=== PATIENT | female | born 1935 | race Caucasian/White ===

== ENCOUNTER 2017-03-14 21:51 | Emergency (ER) | payer MEDICARE, BC ==
[2017-03-15] MEDS ORDERED: Heparin Sodium/D5W 25,000 UNITS/500 ML BAG IV SCH (00:45)
[2017-03-15] MEDS ORDERED: Heparin Sodium 5,000 Units/ML Vial IVPUSH ONE (00:50)
[2017-03-15] MEDS: Aspirin 325 MG Tab.EC PO ONE ×2 (00:54→01:16)
[2017-03-15 01:29] VITALS: BP 156/64
--- NOTE | 2017-03-17 12:02 | ER ---
DATE SEEN: 03/14/2017 The patient was seen at 2300 hours. HISTORY: This 81-year-old woman comes in because she had sudden onset of peripheral vision "seeing squares and colored dots in the center of triangles." She had right-sided peripheral vision changes. She got up to make supper for her daughter and was moving about when she experienced these symptoms. She went up the stairs and then came down and experienced further lightheadedness. PAST MEDICAL HISTORY: This patient is diabetic. She has dry eyes, mild retention, glaucoma, dyslipidemia, and GERD. ALLERGIES: None. MEDICATIONS: 1. Omeprazole. 2. Insulin. 3. Tylenol. 4. Dry eye drops. 5. Calcium carbonate with vitamin D. 6. Aspirin. 7. Lasix. 8. Kathryn-3 fatty acids. 9. Metoprolol. 10.Lisinopril. 11.Latanoprost. 12.Simvastatin. REVIEW OF SYSTEMS: CONSTITUTIONAL: The patient denies headache, neck stiffness, or compromise in her vision right now. She denies diplopia or blurred vision presently. Denies neck ache. She notes that she has compromised circulation in her carotids. She denies chest pain, shortness of breath, cough, irregular heartbeat, lightheadedness, dizziness, near syncope, syncope, or dyspnea on exertion. GI: She is overweight. She weighs 230 pounds with a BMI of 44.2. No blood in the stool or black tarry stool. : Notes occasional incontinence. MUSCULOSKELETAL: Has problems with her right hip. She walks with a slight limp. This is not new for her. She plans on seeing Dr. Salcido next week. Two years ago, she had right hip pain, was treated with meloxicam. She was started on glaucoma medicine a year ago. She just saw a doctor four days ago. Has a past medical history of previous CVA, which has resolved. PHYSICAL EXAMINATION: VITAL SIGNS: Blood pressure 163/69. Heart rate 68 and regular. Respiratory rate 18, oxygen saturation 97%, temperature 36.7 degrees centigrade. Weight 106.14 kg with a BMI of 44 kg/m2. CONSTITUTIONAL: Alert woman, overweight who has marked fullness of face and abdomen with her overweight features. She is attended by her two daughters, who insisted that she come into the hospital. HEENT: PERRLA intact. Eyegrounds normal. Retina: No abnormality except for mild drusen and arterial changes, but no retinal detachment. Lenses, previous surgery noted for glaucoma. There is a question for cataracts. EOMs normal. Pharynx without abnormality. Gag in place. Uvula midline. NECK: No thyromegaly or masses in the neck. No cervical adenopathy. Slight bruit in the right side of her neck, less than the left. HEART: S1, S2. There is a soft systolic murmur. S2 slightly greater than S1. LUNGS: Clear to auscultation without rales, rhonchi, or wheezes. ABDOMEN: Soft. No guarding or abdominal discomfort. Increased abdominal girth. LOWER EXTREMITIES: Without pedal edema. Deep tendon reflexes, absent in the lower extremities but 1+ in upper extremities, brachioradialis (C5) and biceps (C6). DIAGNOSTIC DATA: EKG: Sinus rhythm. There is a T-wave inversion in lead III and V1. No ST elevation. Right bundle-branch block, left anterior hemiblock, sinus rhythm. LABORATORY DATA: She had a troponin, which is elevated at 0.33. Otherwise, metabolic panel: Chloride low at 98, CO2 elevated at 30, BUN 25, and creatinine 1.2. BUN and creatinine ratio 20.8, slight dehydration, and GFR estimated 43 - stage 3 chronic kidney disease. Trace elevation in the alkaline phosphatase, and total protein slightly elevated at 8.2. Hemoglobin normal at 13.1, white count 10,800, PMNs 60, lymphs 29, monos 9, eosinophils 4. DIAGNOSES: 1. Non-ST elevation myocardial infarction. The patient's status discussed with Dr. Arreola, hospitalist, [facility]. 2. Marked obesity. 3. Peripheral vision abnormality, possibly secondary to carotid circulation abnormality. No clear evidence for amaurosis fugax. 4. Glaucoma. 5. Hypertension. 6. Diabetes. 7. Dry eyes. /[id number] JAZMINE/SHIRLEYL
== END 2017-03-15 01:48 ==
LOC: FB.ED 21:51
DX: I21.4 Non-ST elevation (NSTEMI) myocardial infarction (principal); H40.9 Unspecified glaucoma; H04.129 Dry eye syndrome of unspecified lacrimal gland; E11.9 Type 2 diabetes mellitus without complications; I10 Essential (primary) hypertension; E78.5 Hyperlipidemia, unspecified; K21.9 Gastro-esophageal reflux disease without esophagitis; Z79.4 Long term (current) use of insulin; Z79.82 Long term (current) use of aspirin
CPT/HCPCS: 36415; 80053; 84484; 85025; 85610; 85730; 93005; 96365; 96376; 99285; J1644; 99284; A9270-GY

== ENCOUNTER 2019-01-26 16:01 | Emergency (ER) | payer MEDICARE, BC ==
[2019-01-26] MEDS ORDERED: Codeine/guaiFENesin 100mg-10 MG/5 ML Soln 118 ML Bottle PO ONE (16:02)
--- NOTE | 2019-01-26 16:37 | EDM.PDOC ---
ED HPI GENERAL MEDICAL PROBLEM - General Chief Complaint: Respiratory Problem Stated Complaint: COUGH CONGESTED Time Seen by Provider: 01/26/19 16:10 Source of Information: Reports: Patient, Family History Limitations: Reports: No Limitations - History of Present Illness INITIAL COMMENTS - FREE TEXT/NARRATIVE: 83 y.o.w.f with multiple med issues, came to the ED due to a cough at night in supine position and occ a running nose. One of the Pt's relative is "sick" Pt describes the cough as dry. Pt is using a walker, can walk 1/2 a block, is tired and has to sit down, which is her baseline. Pt is on prednisone, which was decreased in dosage for 4 to 3 mg daily. No F/C, no N/V/D no other acute med issues. BP 101/57 RR 20 Pulse ox 94% on RA Temp 36.8 Pulse 59 Onset Date: 01/24/19 Onset Time: 09:00 Duration: Day(s):, Intermittent Location: Reports: Face, Chest Quality: Reports: Dull Improves with: Reports: Rest Worsens with: Reports: Movement Context: Reports: Sick Contact Associated Symptoms: Reports: No Other Symptoms - Related Data Allergies Allergy/AdvReac Type Severity Reaction Status Date / Time No Known Allergies Allergy Verified 01/26/19 16:10 Home Meds: Home Meds Acetaminophen [Mapap] 500 mg PO DAILY PRN 12/12/13 [History] Aspirin 325 mg PO DAILY 12/12/13 [History] Calcium Carbonate/Vitamin D3 [Calcium 600 + Vit D Tablet] 1 each PO DAILY [History] Carboxymethylcellulos/Glycerin [Refresh Optive Eye Drops] 15 ml OP DAILY PRN 03/19 [History] Furosemide 20 mg PO DAILY 12/12/13 [History] Latanoprost 1 drop EYEBOTH DAILY 12/12/13 [History] Lisinopril 40 mg PO DAILY 12/12/13 [History] Metoprolol Tartrate [Lopressor] 50 mg PO DAILY 12/12/13 [History] [place]-3 Fatty Acids [[place]-3] 600 mg PO DAILY 12/12/13 [History] Omeprazole 20 mg PO DAILY PRN 12/12/13 [History] Simvastatin 40 mg PO DAILY 12/12/13 [History] Insulin Aspart [NovoLOG] 14 unit SQ WITHMEALSANDBED 03/14/17 [History] Insulin Glarg,Human.Rec.Analog [LantUS Solostar] 46 unit SUBCUT WITHBREAKFAST [History] Past Medical History HEENT History: Reports: Cataract, Impaired Vision Cardiovascular History: Reports: Heart Murmur, High Cholesterol, Hypertension Gastrointestinal History: Reports: GERD [employer] History: Reports: Musculoskeletal History: Reports: Arthritis, Back Pain, Chronic Endocrine/Metabolic History: Reports: Diabetes, Type II, Obesity/BMI 30+ - Past Surgical History HEENT Surgical History: Reports: Cataract Surgery, Tonsillectomy GI Surgical History: Reports: Cholecystectomy, Colonoscopy Musculoskeletal Surgical History: Reports: Knee Replacement Social & Family History - Family History Family Medical History: Noncontributory - Tobacco Use Smoking Status *Q: Never Smoker Second Hand Smoke Exposure: No - Caffeine Use Caffeine Use: Reports: Soda - Recreational Drug Use Recreational Drug Use: No ED ROS GENERAL - Review of Systems Review Of Systems: See Below Constitutional: Reports: No Symptoms HEENT: Reports: Rhinitis Respiratory: Reports: Cough (occ, dry) Cardiovascular: Reports: No Symptoms Endocrine: Reports: No Symptoms GI/Abdominal: Reports: No Symptoms : Reports: No Symptoms Musculoskeletal: Reports: No Symptoms Skin: Reports: No Symptoms Neurological: Reports: No Symptoms Psychiatric: Reports: No Symptoms Hematologic/Lymphatic: Reports: No Symptoms Immunologic: Reports: No Symptoms ED EXAM, GENERAL - Physical Exam Exam: See Below Exam Limited By: No Limitations General Appearance: Alert, WD/WN, Mild Distress Eye Exam: Bilateral Eye: Normal Inspection Ears: Normal External Exam Ear Exam: Bilateral Ear: Auricle Normal Nose: Normal Inspection, Normal Mucosa Throat/Mouth: Normal Inspection, Normal Lips, Normal Voice, No Airway Compromise Head: Atraumatic, Normocephalic Neck: Normal Inspection, Supple, Non-Tender, Full Range of Motion Respiratory/Chest: No Respiratory Distress, Lungs Clear, Normal Breath Sounds, No Accessory Muscle Use, Chest Non-Tender Cardiovascular: Normal Peripheral Pulses, Regular Rate, Rhythm, No Edema, No Gallop, No Rub Peripheral Pulses: 1+: Radial (L) GI/Abdominal: Normal Bowel Sounds, Soft, Non-Tender, No Organomegaly, No Mass, Pelvis Stable (Female) Exam: Deferred Rectal (Female) Exam: Deferred Back Exam: Normal Inspection Extremities: Normal Inspection, Normal Range of Motion, Non-Tender, Normal Capillary Refill Neurological: Alert, Oriented, CN II-XII Intact, Normal Cognition Psychiatric: Normal Affect, Normal Mood Skin Exam: Warm, Dry, Normal Color, No Rash Lymphatic: No Adenopathy Course - Vital Signs Text/Narrative:: 83 y.o.w.f with multiple med issues, came to the ED due to a cough at night in supine position and occ a running nose. One of the Pt's relative is "sick" Pt describes the cough as dry. Pt is using a walker, can walk 1/2 a block, is tired and has to sit down, which is her baseline. Pt is on prednisone, which was decreased in dosage for 4 to 3 mg daily. No F/C, no N/V/D no other acute med issues. BP 101/57 RR 20 Pulse ox 94% on RA Temp 36.8 Pulse 59 PE: WNWD W F with dry cough and sinus tenderness Imaging: Max sinuses: NAD, CXR 2 views: Fibrosis: As per NAD Impression: Rhinitis. Dry cough, cause not determined Tx: None in the ED Reexam: Pt was doing fine in the ED Plan: D/C with instructions Last Recorded V/S: Last Vital Signs Temp 36.9 C 01/26/19 17:50 Pulse 65 01/26/19 17:50 Resp 18 01/26/19 17:50 BP 120/52 L 01/26/19 17:50 Pulse Ox 94 L 01/26/19 17:50 - Orders/Labs/Meds Orders: Active Orders 24 hr Category Date Time Status Chest 2V [CR] Stat Exams 01/26/19 16:34 Taken Sinus Comp Min 3V [CR] Stat Exams 01/26/19 16:34 Taken Departure - Departure Time of Disposition: 17:46 Disposition: Home, Self-Care 01 Condition: Good Clinical Impression: Cough in adult patient, Cough Rhinitis Qualifiers: Allergic rhinitis trigger: other - Discharge Information Instructions: Nonallergic Rhinitis Referrals: Isrrael Salcido MD [Primary Care Provider] - Forms: ED Department Discharge Additional Instructions: Please cont your meds, please take Robitussin as recommended, please F/U, come back if your symptoms get worse acutely - My Orders Last 24 Hours: My Active Orders 01/26/19 16:34 Chest 2V [CR] Stat Sinus Comp Min 3V [CR] Stat - Assessment/Plan Last 24 Hours: My Active Orders 01/26/19 16:34 Chest 2V [CR] Stat Sinus Comp Min 3V [CR] Stat
[2019-01-26 18:01] VITALS: BP 120/52; PULSE 65
--- NOTE | 2019-01-27 08:02 | CR ---
INDICATION: Cough. CHEST TWO VIEWS: PA and lateral views of the chest 01/26/19 was compared with PA view of 02/14/10. The heart is enlarged with left ventricular prominence. The aorta is tortuous to a mild degree and calcified in the arch area. Diminished bone density suggests osteoporosis. Bridging hyperostotic changes are noted in the mid to lower thoracic spine. Evidence of exogenous obesity is noted. Pulmonary markings appear similar to the previous study overall and are slightly heavy at the left lung base raising question of either fibrosis or minimal patchy bronchopneumonia. Similar appearance at the right lung base also likely fibrotic. No gross consolidating pneumonia or effusion was seen, however. IMPRESSION: 1. No definite acute process but cannot exclude minimal patchy bronchopneumonia at the lung bases. 2. Progressive ASHD with LVE. 3. Mild dextroconvex scoliosis lower middle thoracic spine with DJD in the lower thoracic spine and mid thoracic spine. MTDD
--- NOTE | 2019-01-27 08:06 | CR ---
INDICATION: Runny nose and sinus pain. PARANASAL SINUSES: Three views of the paranasal sinuses revealed the paranasal sinuses to appear atretic in the area of the frontal sinuses. The ethmoidal and maxillary as well as sphenoidal air cells appear to be well aerated with no air fluid levels or opacification. No definite bony erosions. IMPRESSION: Normal paranasal sinuses. Reports were called to Reina at 1738 hours. [facility]
== END 2019-01-26 17:58 | disposition home or self-care (01) ==
LOC: FB.ED 16:01
DX: J30.9 Allergic rhinitis, unspecified (principal); R05 Cough; E78.00 Pure hypercholesterolemia, unspecified; I10 Essential (primary) hypertension; K21.9 Gastro-esophageal reflux disease without esophagitis; E11.9 Type 2 diabetes mellitus without complications; Z79.82 Long term (current) use of aspirin; Z79.899 Other long term (current) drug therapy; Z79.4 Long term (current) use of insulin
CPT/HCPCS: 71046; 99283; 99283-25; A9270-GY

== ENCOUNTER 2020-07-27 19:05 | Emergency (ER) | payer MEDICARE, BC ==
[2020-07-27 19:30] VITALS: PULSE 70
--- NOTE | 2020-07-27 19:55 | EDM.PDOC ---
ED HPI GENERAL MEDICAL PROBLEM - General Chief Complaint: Genitourinary Problem Stated Complaint: BLOOD IN URINE Time Seen by Provider: 07/27/20 19:35 Source of Information: Reports: Patient History Limitations: Reports: No Limitations - History of Present Illness INITIAL COMMENTS - FREE TEXT/NARRATIVE: 85-year-old female who reports last night had pain with urination and frequency. It seemed to improve by the time she went to bed and she states that she slept all through the night without any problems and no more symptoms in the morning when she awoke. She states that she went to [place] today and had numerous doctor appointments related to her previous pacemaker and TAVR and her other medical problems and when she was coming home she went to the restroom and urinated and noted blood in her urine she also had redeveloped the pain with urination to some extent and she also noted mid back pain. She has had no fevers or chills. No nausea or vomiting. No abdominal pain. No weakness or dizziness. She reports that her pain is a 3/10 in her mid back and also when she urinates. The pain in her back is somewhat worse with movement and with palpation. She states that she does have some chronic back pain and she is unsure if this pain is new from that chronic back pain. She reports that she has been eating and drinking normally. She has no chest pain or shortness of breath. She is currently on no chronic anticoagulation. She presents to the emergency department via private vehicle by her granddaughter. There are no other associated signs or symptoms. There are no other modifying factors. Onset: Other (Yesterday evening) Duration: Waxing/Waning (Initially seemed to get better but has come back and seems worse today.) Location: Reports: Back, Other (Genitourinary area with urination) Quality: Reports: Burning, Other ("Discomfort") Severity: Mild Improves with: Reports: None Worsens with: Reports: Other (Palpation. The genitourinary pain is with urination.), Movement Context: Reports: Other Associated Symptoms: Reports: No Other Symptoms Treatments DIN[employer]PER[employer] SLATE: Reports: Other (see below) (Nothing.) - Related Data Allergies Allergy/AdvReac Type Severity Reaction Status Date / Time morphine Allergy Hallucinati Verified 07/27/20 19:29 ons oxycodone Allergy Hallucinati Verified 07/27/20 19:29 ons Home Meds: Home Meds Acetaminophen [Mapap] 500 mg PO DAILY PRN 12/12/13 [History] Aspirin 325 mg PO DAILY 12/12/13 [History] Calcium Carbonate/Vitamin D3 [Calcium 600 + Vit D Tablet] 1 each PO DAILY 12/12/13 [History] Carboxymethylcellulos/Glycerin [Refresh Optive Eye Drops] 15 ml OP DAILY PRN 12/12/13 [History] Furosemide 20 mg PO DAILY 12/12/13 [History] Latanoprost 1 drop EYEBOTH DAILY 12/12/13 [History] Lisinopril 40 mg PO DAILY 12/12/13 [History] Metoprolol Tartrate [Lopressor] 50 mg PO DAILY 12/12/13 [History] [place]-3 Fatty Acids [[place]-3] 600 mg PO DAILY 12/12/13 [History] Omeprazole 20 mg PO DAILY PRN 12/12/13 [History] Simvastatin 40 mg PO DAILY 12/12/13 [History] Insulin Aspart [NovoLOG] 14 unit SQ WITHMEALSANDBED 03/14/17 [History] Insulin Glarg,Human.Rec.Analog [LantUS Solostar] 46 unit SUBCUT WITHBREAKFAST 03/14/17 [History] Past Medical History HEENT History: Reports: Cataract, Impaired Vision Cardiovascular History: Reports: Heart Murmur, Heart Valve Replacement, High Cholesterol, Hypertension, Pacemaker, Other (See Below) Other Cardiovascular History: recent blood clot in her arm that was removed. Respiratory History: Reports: Other (See Below) Other Respiratory History: pneumonia after her valve replacement. Gastrointestinal History: Reports: GERD Genitourinary History: Reports: Other (See Below) Other Genitourinary History: states that she had kidney problems. Musculoskeletal History: Reports: Arthritis, Back Pain, Chronic Endocrine/Metabolic History: Reports: Diabetes, Type II, Obesity/BMI 30+ Hematologic History: Reports: Anemia, Other (See Below) Other Hematologic History: hx of blood transfusion. - Past Surgical History HEENT Surgical History: Reports: Cataract Surgery, Tonsillectomy Cardiovascular Surgical History: Reports: Pacer, Other (See Below) (TAVR) GI Surgical History: Reports: Cholecystectomy, Colonoscopy Musculoskeletal Surgical History: Reports: Knee Replacement Social & Family History - Tobacco Use Tobacco Use Status *Q: Never Tobacco User Second Hand Smoke Exposure: No - Caffeine Use Caffeine Use: Reports: Soda Other Caffeine Use: once in a while - Alcohol Use Alcohol Use History: No - Recreational Drug Use Recreational Drug Use: No - Living Situation & Occupation Occupation: Retired Social History Comment: Lives in her own home and her granddaughter lives with her. ED ROS GENERAL - Review of Systems Review Of Systems: See Below Constitutional: Reports: No Symptoms HEENT: Reports: No Symptoms Respiratory: Reports: No Symptoms Cardiovascular: Reports: No Symptoms GI/Abdominal: Reports: No Symptoms : Reports: Dysuria, Hematuria Musculoskeletal: Reports: Back Pain Skin: Reports: No Symptoms Neurological: Reports: No Symptoms Hematologic/Lymphatic: Reports: No Symptoms (No chronic anticoagulation.) Immunologic: Reports: No Symptoms ED EXAM, RENAL/ - Physical Exam Exam: See Below Exam Limited By: No Limitations General Appearance: Alert, No Apparent Distress, Obese, Other (Nontoxic appearing) Eye Exam: Bilateral Eye: EOMI, Normal Inspection, PERRL Ears: Normal External Exam, Hearing Grossly Normal Nose: Normal Inspection, Normal Mucosa, No Blood Throat/Mouth: Normal Inspection, Normal Lips, Normal Oropharynx, Normal Voice, No Airway Compromise Head: Atraumatic, Normocephalic Neck: Normal Inspection, Supple, Non-Tender, Full Range of Motion Respiratory/Chest: No Respiratory Distress, Lungs Clear, Normal Breath Sounds, No Accessory Muscle Use, Chest Non-Tender Cardiovascular: Normal Peripheral Pulses, Regular Rate, Rhythm, No Murmur GI/Abdominal: Normal Bowel Sounds, Soft, Non-Tender, No Mass Back Exam: Normal Inspection, Full Range of Motion, CVA Tenderness (R) (Mild.) Extremities: Non-Tender, Normal Capillary Refill, Pedal Edema (Trace) Neurological: Alert, Oriented, CN II-XII Intact, Normal Cognition, No Motor/Sensory Deficits Psychiatric: Normal Affect Skin Exam: Warm, Dry, Intact, Normal Color, No Rash Course - Vital Signs Last Recorded V/S: Last Vital Signs Temp 36.0 C L 07/27/20 22:00 Pulse 70 07/27/20 22:00 Resp 19 07/27/20 22:00 BP 169/60 H 07/27/20 22:00 Pulse Ox 97 07/27/20 22:00 - Orders/Labs/Meds Orders: Active Orders 24 hr Category Date Time Status Abdomen Pelvis wo Cont [CT] Stat Exams 01/22/21 20:01 Taken CULTURE URINE [RM] Stat Lab 07/27/20 19:25 Received Peripheral IV Insertion Adult [OM.PC] Routine Oth 07/27/20 21:03 Ordered Labs: Laboratory Tests 07/27/20 07/27/20 07/27/20 Range/Units 19:31 19:44 19:44 WBC 7.1 (3.0-10.3) x10-3/uL RBC 4.02 (3.60-5.20) x10(6)uL Hgb 12.1 (11.4-15.5) g/dL Hct 38.1 (34.2-48.2) % MCV 94.8 (76.7-100.5) fL MCH 30.1 (23.9-33.9) pg MCHC 31.8 L (31.9-34.8) g/dL RDW 16.2 (12.3-16.5) % Plt Count 197 (151-488) x10(3)uL MPV 9.3 (7.1-12.4) fL Neut % (Auto) 64.2 (30.8-76.2) % Lymph % (Auto) 22.4 (18.4-52.1) % [place] % (Auto) 8.5 (4.4-15.7) % Eos % (Auto) 3.5 (0.6-8.1) % Baso % (Auto) 1.4 (0.2-1.5) % Neut # (Auto) 4.6 (1.5-6.3) x10-3/uL Lymph # (Auto) 1.6 (1.0-4.4) x10-3/uL [place] # (Auto) 0.6 (0.3-1.0) x10-3/uL Eos # (Auto) 0.2 (0.0-0.8) x10-3/uL Baso # (Auto) 0.1 (0.0-0.1) x10-3/uL PT 10.2 (9.0-11.1) sec INR 0.94 L (1.00-1.24) Sodium (135-145) mmol/L Potassium (3.5-5.3) mmol/L Chloride (100-110) mmol/L Carbon Dioxide (21-32) mmol/L BUN (7-18) mg/dL Creatinine (0.55-1.02) mg/dL Est Cr Clr Drug Dosing mL/min Estimated GFR (MDRD) (>60) BUN/Creatinine Ratio (9-20) Glucose (80-116) mg/dL Calcium (8.6-10.2) mg/dL Total Bilirubin (0.1-1.3) mg/dL AST (5-25) IU/L ALT (12-36) U/L Alkaline Phosphatase (56-112) IU/L Total Protein (6.0-8.0) g/dL Albumin (3.2-4.6) g/dL Globulin g/dL Albumin/Globulin Ratio Urine Color Red (YELLOW) Urine Appearance Cloudy (CLEAR) Urine pH 7.0 H (5.0-6.5) Ur Specific [place] 1.015 (1.010-1.025) Urine Protein 100 H (NEGATIVE) mg/dL Urine Glucose (UA) 100 H (NORMAL) mg/dL Urine Ketones 15 H (NEGATIVE) mg/dL Urine Occult Blood Moderate H (NEGATIVE) Urine Nitrite Positive H (NEGATIVE) Urine Bilirubin Negative (NEGATIVE) Urine Urobilinogen 1 H (NEGATIVE) mg/dL Ur Leukocyte Esterase Moderate H (NEGATIVE) Urine RBC Packed H (0-5) 07/27/20 Range/Units 19:44 WBC (3.0-10.3) x10-3/uL RBC (3.60-5.20) x10(6)uL Hgb (11.4-15.5) g/dL Hct (34.2-48.2) % MCV (76.7-100.5) fL MCH (23.9-33.9) pg MCHC (31.9-34.8) g/dL RDW (12.3-16.5) % Plt Count (151-488) x10(3)uL MPV (7.1-12.4) fL Neut % (Auto) (30.8-76.2) % Lymph % (Auto) (18.4-52.1) % [place] % (Auto) (4.4-15.7) % Eos % (Auto) (0.6-8.1) % Baso % (Auto) (0.2-1.5) % Neut # (Auto) (1.5-6.3) x10-3/uL Lymph # (Auto) (1.0-4.4) x10-3/uL [place] # (Auto) (0.3-1.0) x10-3/uL Eos # (Auto) (0.0-0.8) x10-3/uL Baso # (Auto) (0.0-0.1) x10-3/uL PT (9.0-11.1) sec INR (1.00-1.24) Sodium 144 (135-145) mmol/L Potassium 4.7 (3.5-5.3) mmol/L Chloride 103 (100-110) mmol/L Carbon Dioxide 33 H (21-32) mmol/L BUN 17 (7-18) mg/dL Creatinine 1.4 H (0.55-1.02) mg/dL Est Cr Clr Drug Dosing 20.72 mL/min Estimated GFR (MDRD) 36 L (>60) BUN/Creatinine Ratio 12.1 (9-20) Glucose 200 H (80-116) mg/dL Calcium 8.8 (8.6-10.2) mg/dL Total Bilirubin 0.5 (0.1-1.3) mg/dL AST 29 H D (5-25) IU/L ALT 14 D (12-36) U/L Alkaline Phosphatase 104 (56-112) IU/L Total Protein 6.6 (6.0-8.0) g/dL Albumin 2.9 L (3.2-4.6) g/dL Globulin 3.7 g/dL Albumin/Globulin Ratio 0.8 Urine Color (YELLOW) Urine Appearance (CLEAR) Urine pH (5.0-6.5) Ur Specific [place] (1.010-1.025) Urine Protein (NEGATIVE) mg/dL Urine Glucose (UA) (NORMAL) mg/dL Urine Ketones (NEGATIVE) mg/dL Urine Occult Blood (NEGATIVE) Urine Nitrite (NEGATIVE) Urine Bilirubin (NEGATIVE) Urine Urobilinogen (NEGATIVE) mg/dL Ur Leukocyte Esterase (NEGATIVE) Urine RBC (0-5) Meds: Medications Discontinued Medications Generic Name Dose Route Start Last Admin Trade Name Freq PRN Reason Stop Dose Admin Ceftriaxone Sodium 1 gm 07/27/20 21:03 07/27/20 21:07 Rocephin IVPUSH 07/27/20 21:04 1 gm ONETIME ONE Administration Sodium Chloride 1,000 mls @ 125 mls/hr 07/27/20 21:15 07/27/20 21:08 Normal Saline IV 125 mls/hr ASDIRECTED DEANNA Administration Sodium Chloride 10 ml 07/27/20 21:03 07/27/20 20:07 Saline Flush FLUSH 10 ml ASDIRECTED PRN Administration Keep Vein Open - Radiology Interpretation Free Text/Narrative:: CT scan of abdomen and pelvis showed no evidence of ureterolithiasis or hydronephrosis. She did have a right nephrolithiasis. There was evidence of colonic diverticulosis but no evidence of diverticulitis area she did have a moderate size left retroperitoneal hematoma extending from the superior pole of the left kidney down to the level of the sacroiliac joint on the left side. This was per the [facility] radiologist. - Re-Assessments/Exams Free Text/Narrative Re-Assessment/Exam: 07/27/20 20:50: I discussed the patient's case with Dr. Berry, [facility] radiologist, and he conveyed the information about the left-sided retroperitoneal hematoma. There was no evidence of intraperitoneal hemorrhage. At this point, the patient was reevaluated and I discussed this with the patient. She has remained hemodynamically stable and nontoxic in appearance. Her blood tests were reassuring with a normal hemoglobin of 12 and a normal platelet count. Her INR was normal confirming that she is not chronically anticoagulated with Coumadin in any event. She also had relatively normal electrolytes with a creatinine of 1.4 with supports her history of chronic renal insufficiency and with a glucose of 200. I will call and discuss the patient's case with the doctors at [facility]. 07/27/20 21:10: I discussed agents case with Dr. Goodman, intake physician at [facility], and he has agreed to accept the patient in transfer. The patient will need to be transferred via ambulance to [facility] for direct admission. An IV will be established with normal saline at 125 mL per hour. The patient will also receive Rocephin 1 g IV. I discussed all of this with the patient and with her granddaughter and they are in agreement with the plan for transfer. Departure - Departure Time of Disposition: 22:15 Disposition: DC/Tfer to Acute Hospital 02 Condition: Fair Clinical Impression: Retroperitoneal hematoma Hematuria Qualifiers: Hematuria type: gross Qualified Code(s): R31.0 - Gross hematuria UTI (urinary tract infection) Qualifiers: Urinary tract infection type: site unspecified Hematuria presence: with hematuria Qualified Code(s): N39.0 - Urinary tract infection, site not specified - Discharge Information Referrals: Isrrael Salcido MD [Primary Care Provider] - Forms: ED Department Discharge Sepsis Event Note (ED) - Evaluation Sepsis Screening Result: No Definite Risk - Focused Exam Vital Signs: Vital Signs Temp Pulse Resp BP Pulse Ox 07/27/20 22:00 36.0 C L 70 19 169/60 H 97 07/27/20 21:00 36.0 C L 70 19 160/69 H 97 07/27/20 19:15 35.9 C L 70 18 177/48 H 97 - My Orders Last 24 Hours: My Active Orders 07/27/20 19:25 CULTURE URINE [RM] Stat 07/27/20 20:01 Abdomen Pelvis wo Cont [CT] Stat 07/27/20 21:03 Peripheral IV Insertion Adult [OM.PC] Routine - Assessment/Plan Last 24 Hours: My Active Orders 07/27/20 19:25 CULTURE URINE [RM] Stat 07/27/20 20:01 Abdomen Pelvis wo Cont [CT] Stat 07/27/20 21:03 Peripheral IV Insertion Adult [OM.PC] Routine
[2020-07-27] MEDS: Sodium Chloride 0.9% 10 ML Syringe FLUSH PRN (20:07)
[2020-07-27] MEDS: cefTRIAXone 1 GM Vial IVPUSH ONE (21:07)
[2020-07-27] MEDS: Sodium Chloride 0.9% 1,000 ML IV SCH (21:08)
[2020-07-27 22:22] VITALS: BP 169/60
== END 2020-07-27 22:15 ==
LOC: FB.ED 19:05
DX: N39.0 Urinary tract infection, site not specified (principal); R31.0 Gross hematuria; K66.1 Hemoperitoneum; E66.9 Obesity, unspecified; Z68.42 Body mass index [BMI] 45.0-49.9, adult; M19.90 Unspecified osteoarthritis, unspecified site; E78.00 Pure hypercholesterolemia, unspecified; K21.9 Gastro-esophageal reflux disease without esophagitis; E11.9 Type 2 diabetes mellitus without complications; Z88.5 Allergy status to narcotic agent; Z79.82 Long term (current) use of aspirin; Z79.4 Long term (current) use of insulin; Z79.899 Other long term (current) drug therapy
CPT/HCPCS: 36415; 74176; 80053; 81001; 85025; 85610; 87086; 87088; 87186; 96374; 99284; J0696; J7030; 99285